=== PATIENT | female | born 1995 | race Caucasian/White ===

== ENCOUNTER 2017-05-09 07:31 | Emergency (ER) | payer MEDICAID ==
[~2017-05-09] VITALS: Ht 160 cm; Wt 117.0 kg
[2017-05-09] MEDS ORDERED: MORPHINE SULFATE 4 MG/ML, 1ML IVPush PRN (08:00)
[2017-05-09] MEDS ORDERED: FAMOTIDINE 20 MG/2 ML IVP ONE (08:00)
[2017-05-09] MEDS ORDERED: SODIUM CHLORIDE FLUSH 10ML SYR IVF ONE (08:00)
[2017-05-09] MEDS ORDERED: ONDANSETRON 2MG/ML, 2ML IVPush ONE (08:00)
[2017-05-09] MEDS ORDERED: SODIUM CHLORIDE 0.9% 1,000ML IVBOLUS ONE (08:00)
[2017-05-09] MEDS ORDERED: FAMOTIDINE 20 MG/2 ML ONE (08:11)
[2017-05-09] MEDS ORDERED: ONDANSETRON 2MG/ML, 2ML ONE (08:11)
[2017-05-09] MEDS ORDERED: MORPHINE SULFATE 4 MG/ML, 1ML ONE (08:11)
[2017-05-09 08:14] LABS: WHITE BLOOD COUNT 7.7 x10^3/uL (3.4-10)
[2017-05-09 08:27] LABS: ASPARTATE AMINO TRANSFERASE 39 U/L (15-37); BLOOD UREA NITROGEN 9 mg/dL (7-18)
[2017-05-09 08:39] VITALS: BP 119/65
[2017-05-09] MEDS ORDERED: LABE100T3 PO (08:43)
[2017-05-09 08:50] LABS: PATH.CAST-FLAG NOT PRESENT; SPERM-FLAG NOT PRESENT; SRC-FLAG NOT PRESENT; XTAL-FLAG NOT PRESENT; YLC-FLAG NOT PRESENT
== END 2017-05-09 09:53 | disposition home or self-care (01) ==
LOC: ED 08:05
DX: R16.2 Hepatomegaly with splenomegaly, not elsewhere classified (principal); R10.11 Right upper quadrant pain; E66.01 Morbid (severe) obesity due to excess calories; Z68.41 Body mass index [BMI] 40.0-44.9, adult
CPT/HCPCS: 36415; 76700; 80053; 81001; 83690; 84703; 85025; 87086; 96361; 96374; 96375; 99285; J2405; J7030; S0028